=== PATIENT | female | born 1990 | race Caucasian/White ===

== ENCOUNTER 2016-10-24 08:37 | Emergency (ER) | payer MEDICAID ==
[~2016-10-24] VITALS: Ht 157.5 cm; Wt 63.5 kg
[2016-10-24 08:46] VITALS: BP 136/78; PULSE 98; RESP 16; TEMP 97.7; O2SAT 98
--- NOTE | 2016-10-24 08:57 | NUR ---
Patient to ER bed 8 to gown for evaluation. Side rails up. Report given to Ernie TAVARES.
--- NOTE | 2016-10-24 09:00 | NUR ---
ER Dr. Sharpe at bedside examining patient.
--- NOTE | 2016-10-24 09:10 | NUR ---
Patient was brought in by boyfriend with complaint of pain and sensitivity to light to her left eye.Patient states the pain occured after removing her contacts this morning.
--- NOTE | 2016-10-24 09:15 | NUR ---
Patient verbalized being able to view the letter 'E' with her left eye, while being unable to identify any letter with her right eye. This visual acuity test was performed by the patient while her vision was uncorrected. made aware.
--- NOTE | 2016-10-24 09:20 | NUR ---
Dr. Sharpe at bedside providing pt education on aftercare and medications.All questions and concerns attended to.Pt verbalized understanding.
--- NOTE | 2016-10-24 09:30 | NUR ---
Patient given written and verbal discharge instructions and verbalizes understanding. ER MD discussed with patient the results and treatment provided. Given copies of tests performed in ER. Patient in stable condition. ID arm band removed. IV catheter removed intact and dressing applied, no active bleeding. Rx of [place] 5/325 mg PO and Ocuflox scripts given. Patient educated on pain management and to follow up with PMD. Pain Scale . Opportunity for questions provided and answered.
[2016-10-24 09:33] VITALS: BP 120/62; PULSE 62; RESP 16; TEMP 97.9; O2SAT 100
== END 2016-10-24 09:33 | disposition home or self-care (01) ==
LOC: SED 08:37
DX: S05.02XA Injury of conjunctiva and corneal abrasion without foreign body, left eye, initial encounter (principal); H20.9 Unspecified iridocyclitis; R03.0 Elevated blood-pressure reading, without diagnosis of hypertension; X58.XXXA Exposure to other specified factors, initial encounter; Y93.89 Activity, other specified; Y99.8 Other external cause status; Y92.89 Other specified places as the place of occurrence of the external cause
CPT/HCPCS: 99283

== ENCOUNTER 2016-12-26 10:44 | Emergency (ER) | payer MEDICAID ==
[~2016-12-26] VITALS: Ht 154.9 cm; Wt 63.5 kg
[2016-12-26 10:44] VITALS: BP 122/84; PULSE 96; RESP 14; TEMP 97.7; O2SAT 98
--- NOTE | 2016-12-26 10:44 | NUR ---
Patient to ER bed 07 to gown for evaluation. Side rails up. Report given to Nabor.
--- NOTE | 2016-12-26 10:50 | NUR ---
PER PATIENT SHE ACCIDENTALLY CUT HER LEFT EYE WITH A PAPER WHILE WORKING AT THE OFFICE.COMPLAINING OF PAIN 10/10 TO LEFT EYE.NO BLEEDING STATED "I AM STILL ABLE TO SEE"NO OTHER COMPLAIN/INJURIES PER PATIENT OR NOTED
--- NOTE | 2016-12-26 11:12 | NUR ---
at bedside examining the patient
[2016-12-26] MEDS ORDERED: IBUPROFEN 400 MG TABLET PO ONE (12:00)
[2016-12-26] MEDS ORDERED: ONDANSETRON 4 MG ODT TAB PO ONE (12:00)
[2016-12-26] MEDS ORDERED: ACETAMINOPHEN 500 MG TABLET PO ONE (12:00)
[2016-12-26] MEDS ORDERED: MORPHINE 4 MG/ML INJ. SYRINGE IM ONE (12:00)
[2016-12-26 12:25] VITALS: BP 118/76; PULSE 88; RESP 20; TEMP 97.6; O2SAT 99
--- NOTE | 2016-12-26 12:25 | NUR ---
Patient given written and verbal discharge instructions and verbalizes understanding. ER MD discussed with patient the results and treatment provided. Patient in stable condition. ID arm band removed. Rx of Bleph-Opth and Tramadol given. Patient educated on pain management and to follow up with PMD. Pain Scale 3/10. Opportunity for questions provided and answered.
== END 2016-12-26 12:25 | disposition home or self-care (01) ==
LOC: SED 10:44
DX: S05.02XA Injury of conjunctiva and corneal abrasion without foreign body, left eye, initial encounter (principal); W26.2XXA Contact with edge of stiff paper, initial encounter; Y93.89 Activity, other specified; Y92.89 Other specified places as the place of occurrence of the external cause; Y99.8 Other external cause status
CPT/HCPCS: 81025; 96372; 99284; J2270; Q0162

== ENCOUNTER 2017-02-09 22:39 | Emergency (ER) | payer MEDICAID ==
[~2017-02-09] VITALS: Ht 157.5 cm; Wt 72.6 kg
[2017-02-09 22:40] VITALS: BP_SYST 120
[2017-02-10] MEDS ORDERED: DIPH-TET-PERTUS Vaccine 0.5 ML VIAL (ADACEL) IM ONE
[2017-02-10] MEDS ORDERED: LIDOCAINE 1% 10 MG/ML, 20 ML MDV IJ ONE
[2017-02-10] MEDS ORDERED: BACITRACIN 1 GM OINT TP ONE
[2017-02-10 00:47] VITALS: BP_SYST 120
== END 2017-02-10 00:47 | disposition home or self-care (01) ==
LOC: SED 22:39
DX: S60.112A Contusion of left thumb with damage to nail, initial encounter (principal); X58.XXXA Exposure to other specified factors, initial encounter; Y93.89 Activity, other specified; Y92.89 Other specified places as the place of occurrence of the external cause; Y99.8 Other external cause status
CPT/HCPCS: 11750; 73140; 81025; 90471; 90715; 99285; J2001; 99284

== ENCOUNTER 2017-08-11 01:59 | Emergency (ER) | payer MEDICAID ==
[~2017-08-11] VITALS: Ht 157.5 cm; Wt 72.6 kg
[2017-08-11 01:59] VITALS: BP_SYST 124
--- NOTE | 2017-08-11 02:15 | NUR ---
Patient to ER bed hallway for evaluation. Side rails up. Report given to Manoj TAVARES.
--- NOTE | 2017-08-11 02:25 | NUR ---
ED MD Johnson at bedside for medical evaluation.
--- NOTE | 2017-08-11 02:30 | NUR ---
Patient arrived to ED a/o x 4 with flu like symptoms x 2 days. C/O fever, chills, body aches that have not been relieved with rest. Reports 10/10 pain to left ear with sore throat. Patient febrile at 99.8. Skin warm and diaphoretic. Denies N/V.
[2017-08-11] MEDS ORDERED: AMOXICILLIN 500 MG CAPSULE PO ONE (03:00)
[2017-08-11] MEDS ORDERED: IBUPROFEN 800 MG TABLET PO ONE (03:00)
--- NOTE | 2017-08-11 03:20 | NUR ---
ED MD Johnson at bedside reassessing patient.
[2017-08-11 03:30] VITALS: BP_SYST 127
--- NOTE | 2017-08-11 03:30 | NUR ---
Patient given written and verbal discharge instructions and verbalizes understanding. ER MD discussed with patient the results and treatment provided. Patient in stable condition. ID arm band removed. Rx of amoxicillin, motrin and promethazine given. Patient educated on pain management and to follow up with PMD. Pain Scale 3/10 tolerable for patient. Opportunity for questions provided and answered.
== END 2017-08-11 03:30 | disposition home or self-care (01) ==
LOC: SED 01:59
DX: H66.92 Otitis media, unspecified, left ear (principal); R03.0 Elevated blood-pressure reading, without diagnosis of hypertension
CPT/HCPCS: 36415; 86710; 99284